=== PATIENT | female | born 1970 | race Caucasian/White ===

== ENCOUNTER 2017-12-24 17:15 | Emergency (ER) | payer BC ==
[~2017-12-24] VITALS: Ht 157.5 cm; Wt 124.7 kg
[~2017-12-24 17:15] MED LIST: CIPRO500 MG PO; FLUCONAZOLE100 MG PO; LAC PO; LEVOTHYROXINE0.1 M2 PO; MOT800 PO; PERCOCET1 TA2 PO
[2017-12-24 17:27] VITALS: Ht 157.5 cm; Wt 124.7 kg
[2017-12-24 18:53] LABS: BASOPHIL % 0.5 % (0-2); PLATELET COUNT 328 x10^3mcL (130-400)
[2017-12-24 18:57] LABS: RED CELL DISTRIBUTION WIDTH 14.6 % (11.5-14.5)
[2017-12-24 19:10] LABS: CALCIUM 8.8 mg/dL (8.5-10.1); CARBON DIOXIDE 28.7 mmol/L (21-32); CHLORIDE SERUM 102 mmol/L (98-107); CREATININE SERUM 0.7 mg/dL (0.6-1.0); GFR1 > 60 mL/min; GLUCOSE SERUM 97 mg/dL (74-106); POTASSIUM SERUM 3.6 mmol/L (3.5-5.1); SODIUM SERUM 140 mmol/L (136-145)
[2017-12-24 19:23] LABS: ALBUMIN 3.7 g/dL (3.4-5.0); ALKALINE PHOSPHATASE 66 U/L (46-116); ALT/SGPT 34 U/L (14-59); AST/SGOT 21 U/L (15-37); LIPASE 90 IU/L (73-393); TOTAL PROTEIN, SERUM 7.9 g/dL (6.4-8.2)
[2017-12-24 20:25] VITALS: BP 133/82
== END 2017-12-24 20:25 | disposition home or self-care (01) ==
LOC: ED 17:15
PROVIDERS: Emergency Medicine
PROC: 3E033NZ Introduction of Analgesics, Hypnotics, Sedatives into Peripheral Vein, Percutaneous Approach (ICD-10-PCS; principal; 2017-12-24)
DX: R10.9 Unspecified abdominal pain (principal)
CPT/HCPCS: J1885; J2550; J3010; J7030

== ENCOUNTER 2019-01-05 16:14 | Emergency (ER) | payer BC ==
[~2019-01-05] VITALS: Ht 160 cm; Wt 106.6 kg
[2019-01-05 17:22] VITALS: Ht 160 cm; Wt 106.6 kg
[2019-01-05 23:52] VITALS: BP 122/76
== END 2019-01-05 23:52 | disposition home or self-care (01) ==
LOC: ED 16:14
DX: R10.12 Left upper quadrant pain (principal); K44.9 Diaphragmatic hernia without obstruction or gangrene; D17.1 Benign lipomatous neoplasm of skin and subcutaneous tissue of trunk
CPT/HCPCS: J1885; Q0092

== ENCOUNTER 2019-01-23 05:11 | Inpatient (IN) | payer BC ==
[~2019-01-23] VITALS: Ht 160 cm; Wt 104.3 kg
[2019-01-23 05:17] VITALS: Ht 160 cm; Wt 104.3 kg
--- NOTE | 2019-01-23 05:23 | NUR ---
PT BIB [facility]. PER BODY WELDER PT WAS AT HOME AND WAS EXPERIENCING ABD PAIN. PT REPORTS ABD PAIN X 2 DAYS WITH INCREASE IN PAIN X 4 HOURS. PT DENIES TAKING ANY MEDICATION AT HOME FOR HER PAIN. PT REPORTS DIARRHEA VOMITING 4 X YESTERDAY, DIARRHEA THAT STARTED YESTERDAY AND NAUSEA THAT STARTED 2 DAYS AGO. ON ASSESSMENT OF ABD PT REPROTS PAIN ON PALPATION OF LLQ AND STATES "THAT HURTS RIGHT THERE BECAUSE OF MY FAT MASS". PT IS AAOX4, PT GRIMACING IN PAIN AND RESPIRATIONS EVEN AND UNLABORED. DR. ECHEVARRIA AT BEDSIDE PERFORMING MSE.
[2019-01-23 05:43] LABS: BASOPHIL % 0.3 % (0-2); PLATELET COUNT 281 x10^3mcL (130-400); RED CELL DISTRIBUTION WIDTH 14.1 % (11.5-14.5)
[2019-01-23 05:55] LABS: CALCIUM 9.3 mg/dL (8.5-10.1); CARBON DIOXIDE 29.5 mmol/L (21-32); CHLORIDE SERUM 102 mmol/L (98-107); CREATININE SERUM 0.8 mg/dL (0.6-1.0); GFR1 > 60 mL/min; GLUCOSE SERUM 114 mg/dL (74-106); POTASSIUM SERUM 3.9 mmol/L (3.5-5.1); SODIUM SERUM 139 mmol/L (136-145)
[2019-01-23 06:00] LABS: ALBUMIN 3.4 g/dL (3.4-5.0); ALKALINE PHOSPHATASE 73 U/L (46-116); ALT/SGPT 36 U/L (14-59); AMYLASE 42 U/L (25-115); AST/SGOT 19 U/L (15-37); BILIRUBIN TOTAL 0.96 mg/dL (0.20-1.00); LIPASE 119 IU/L (73-393); TOTAL PROTEIN, SERUM 7.8 g/dL (6.4-8.2)
--- NOTE | 2019-01-23 06:10 | NUR ---
DR. MENDOZA AT BEDSIDE PERFORMING MSE.
--- NOTE | 2019-01-23 07:10 | NUR ---
RECEIVED REPORT FROM RADHA CUSTOMER TRAINING SPECIALIST NURSE
--- NOTE | 2019-01-23 07:20 | NUR ---
PT AWAKE AND ALERT. NAD. RESP E/U. PT ON FULL CM. CALL LIGHT WITHIN REACH.
[2019-01-23] MEDS ORDERED: SYNTHROID0.175 MG PO (08:18)
[2019-01-23 09:28] LABS: T3 TOTAL 0.87 ng/mL
[2019-01-23 09:31] LABS: FREE T4 1.28 ng/dL (0.76-1.46); FREE THYROXINE INDEX 3.9 ug/dL (1.4-4.5); T4(THYROXINE) 11.9 ug/dL (4.7-13.3)
[2019-01-23 09:40] LABS: MAGNESIUM 1.8 mg/dL (1.8-2.4); PHOSPHOROUS 2.9 mg/dL (2.5-4.9)
--- NOTE | 2019-01-23 10:02 | NUR ---
PT MEDICATED PER DOCTOR'S STANDING ORDERS FOR PAIN 06/06.
[2019-01-23 10:18] LABS: CHOLESTEROL/HDL RATIO 4.7
--- NOTE | 2019-01-23 11:19 | NUR ---
PT PROVIDED WATER AND MEDICATED PER DOCTORS ORDERS
[2019-01-23 15:11] LABS: microscopic required? YES; urine erythrocyte 3+ (NEGATIVE)
--- NOTE | 2019-01-23 15:51 | NUR ---
RECEIVED PATIENT AT THIS TIME. PATIENT RESTING COMFORTABLY IN BED. NO APPARENT DISTRESS OR DISCOMFORT NOTED. BREATHING EVEN AND UNLABORED. NO RESPIRATORY DISTRESS NOTED. PULSES PALPABLE NO EDEMA NOTED. PATIENT DENIES CHEST PAIN AT THIS TIME. PATIENT C/O ABD PAIN 04/06. NO NAUSEA/VOMITING. VOIDS FREELY WITH NO C/O BURNING/DISCOMFORT. IV TO RIGHT HAND PATENT AND INTACT. ALL QUESTIONS AND CONCERNS ADDRESSED. ALL NEEDS ATTENDED TO. WILL CONTINUE TO MONITOR
[2019-01-23 17:26] VITALS: BP 109/60
--- NOTE | 2019-01-23 18:00 | NUR ---
PATIENT SITTING UP IN BED EATING DINNER AT THIS TIME. TOLERATING DIET FAIRLY. NO APPARENT DISTRESS NOTED. ALL NEEDS ATTENDED TO . WILL CONTINUE TO MONITOR
--- NOTE | 2019-01-23 19:08 | NUR ---
RECEIVED PT FROM DAY SHIFT RN. PT IS AA&O X 4 AND RESTING IN BED. ABLE TO FOLLOW COMMANDS. PT HEMODIALYSIS ACCESS IS CLEAN DRY AND INTACT. PT DENIES ANY CHEST PAIN OR SOB AT THIS TIME. LUNG SOUNDS ARE CLEAR TO AUSCULTATION AND NO USE OF ACCESSORY MUSCLES OR NOTED UPON ASSESSSMENT. PT HAS A RIGHT FEMORAL ACCESS THAT IS CLEAN DRY AND INTACT AT THIS TIME. SAFETY MEASURES ARE ON PLACE CALL LIGHT IS WITHIN REACH. WILL CONTINUE TO MONITOR.
--- NOTE | 2019-01-23 19:10 | NUR ---
PATIENT RESTING COMFORTABLY IN BED AT THIS TIME. NO APPARENT DISTRESS OR DISCOMFORT NOTED. IV PATENT AND INTACT. FAMILY MEMBER AT BEDSIDE. ALL QUESTIONS AND CONCERNS ADDRESSED. ALL NEEDS ATTENDED TO. SAFETY PRECAUTIONS MAINTAINED. WILL ENDORSE ALL CARE TO DELIVERY RN NURSE
--- NOTE | 2019-01-23 19:40 | NUR ---
RECEIVED PT FROM DAY SHIFT RN. PT IS AA&O X4 AND ABLE TO FOLLOW COMMANDS. PT HAS A RIGHT HAND IV THAT IS CLEAN DRY AND INTACT WITH NS RUNNING AT 70 ML/HR. PT DENIES ANY CHEST PAIN OR SHORTNESS OF BREATH AT THIS TIME. PT IS ON ROOM AIR. LUNG SOUNDS ARE CLEAR TO AUSCULTATION WITH NO USE OF ACCESSORY MUSCLES. SAFETY MEASURES ARE IN PLACE. CALL LIGHT IS WITHIN REACH. WILL CONTINUE TO MONITOR.
[2019-01-23 21:08] VITALS: BP 103/56
[2019-01-24 05:14] VITALS: BP 96/52
--- NOTE | 2019-01-24 06:15 | NUR ---
PT SLEPT THROUGHOUT THE NIGHT. PT DENIES CHEST PAIN OR SHORTNESS OF BREATH. PT DENIES ANY PAIN AT THIS TIME. PT RESTING IN BED. CALL LIGHT IS WITHIN REACH WILL ENDORSE TO THE DAY SHIFT RN.
--- NOTE | 2019-01-24 07:15 | NUR ---
RECEIVED PT. IN BED A/A/O X3. NO SOB, NO N/V NOTED. PT. DENIES ANY PAIN AT THIS TIME. NS RUNNING AT 70 CC/HR VIA IV SITE AT R HAND. SCD TO BLE MAINTAINED. BED IN LOW POS., CALL LIGHT WITHIN REACH. SIDE RAILS UP X3.
[2019-01-24 07:27] VITALS: BP 112/68
[2019-01-24 08:50] LABS: BASOPHIL % 0.3 % (0-2); PLATELET COUNT 260 x10^3mcL (130-400)
[2019-01-24 08:57] LABS: RED CELL DISTRIBUTION WIDTH 14.6 % (11.5-14.5)
[2019-01-24 09:14] LABS: CALCIUM 8.1 mg/dL (8.5-10.1); CARBON DIOXIDE 30.2 mmol/L (21-32); CHLORIDE SERUM 105 mmol/L (98-107); CREATININE SERUM 0.8 mg/dL (0.6-1.0); GFR1 > 60 mL/min; GLUCOSE SERUM 92 mg/dL (74-106); POTASSIUM SERUM 4.1 mmol/L (3.5-5.1); SODIUM SERUM 140 mmol/L (136-145)
--- NOTE | 2019-01-24 11:30 | NUR ---
D/C HOME INSTRUCTIONS GIVEN TO PT. WHO VERBALIZED UNDERSTANDING OF INSTRUCTIONS. IV H/L TO R HAND REMOVED.
--- NOTE | 2019-01-24 13:07 | NUR ---
PT. IS BEING DISCHARGED IN STABLE CONDITION VIA WHEELCHAIR. ALL BELONGINGS SENT HOME WITH PT. UPON DISCHARGE.
== END 2019-01-24 13:08 | disposition home or self-care (01) | DRG 392 ==
LOC: ED 05:11 → MU 07:48
PROVIDERS: Emergency Medicine; Internal Medicine Gastroenterology; ADMIT General Practice
PROC: 0DB68ZX Excision of Stomach, Via Natural or Artificial Opening Endoscopic, Diagnostic (ICD-10-PCS; principal; 2019-01-23 13:30)
DX: R10.9 Unspecified abdominal pain (principal); Z68.41 Body mass index [BMI] 40.0-44.9, adult; E66.9 Obesity, unspecified; Z90.49 Acquired absence of other specified parts of digestive tract; E03.9 Hypothyroidism, unspecified
CPT/HCPCS: 43235; 84439; J1200; J1610; J1885; J2250; J2270; J2310; J2405; J3010; J3490; J7030; Q0092

== ENCOUNTER 2020-03-19 19:35 | Emergency (ER) | payer SELFPAY ==
[~2020-03-19] VITALS: Ht 160 cm; Wt 113.4 kg
[~2020-03-19 19:35] MED LIST changes: +SYNTHROID0.175 MG PO
[2020-03-19 19:37] VITALS: Ht 160 cm; Wt 113.4 kg
[2020-03-19 21:34] VITALS: BP 154/90
== END 2020-03-19 21:34 | disposition home or self-care (01) ==
LOC: ED 19:35
DX: R50.9 Fever, unspecified (principal); J02.9 Acute pharyngitis, unspecified; E03.9 Hypothyroidism, unspecified; Z87.442 Personal history of urinary calculi; Z20.828 Contact with and (suspected) exposure to other viral communicable diseases; Z03.818 Encounter for observation for suspected exposure to other biological agents ruled out
CPT/HCPCS: U0003-CS